=== PATIENT | male | born 1945 | race Caucasian/White ===

== ENCOUNTER 2021-11-12 13:44 | Inpatient (IN) | payer OTHER ==
[~2021-11-12] VITALS: Ht 177.8 cm; Wt 52.3 kg
[~2021-11-12 13:44] MED LIST: ADVAIR 250-501 EACH INH; ALBUTEROL0.63 MG/3 INH; ALPRAZOLAM0.5 MG PO; LEVAQUIN500 MG PO; MEDROL4 MG PO; MYCOSTATIN100000 UTS PO; NORVASC5 MG PO; OMNICEF 300 MG300 MG PO; PREDNISONE20 MG PO; PRINIVIL20 MG PO; PROAIR HFA8.5 GM INH; SPIRIVA RESPIMAT4 GM INH; TYLENOL 325MG325 MG PO; ZYRTEC10 M3 PO
[2021-11-12 14:24] LABS: HEMOGLOBIN 13.7 gm/dl (14.0-17.5); RED BLOOD COUNT 4.57 M/UL (4.20-5.50); WHITE BLOOD COUNT 25.3 K/UL (4.5-11.0)
[2021-11-12 14:40] LABS: BUN/CREATININE RATIO 29 (0-10)
[2021-11-12] MEDS ORDERED: ATORVASTATIN CA20 MG PO (17:19)
[2021-11-13 03:54] LABS: HEMOGLOBIN 11.4 gm/dl (14.0-17.5); RED BLOOD COUNT 3.81 M/UL (4.20-5.50)
[2021-11-13 04:27] LABS: BUN/CREATININE RATIO 23 (0-10)
[2021-11-14 04:11] LABS: HEMOGLOBIN 11.7 gm/dl (14.0-17.5); RED BLOOD COUNT 3.92 M/UL (4.20-5.50); WHITE BLOOD COUNT 11.9 K/UL (4.5-11.0)
[2021-11-14 05:02] LABS: BUN/CREATININE RATIO 29 (0-10)
--- NOTE | 2021-11-14 15:54 | NUR ---
PRESENT ELEVATED CARDIAC LEVELS SHOWN TO DR ACOSTA. ELEVATED TROPONIN ON ADMISSION CALLED TO DR TIAN, HE STATED CARDIOLOGY WAS AWARE.
[2021-11-15 03:23] LABS: HEMOGLOBIN 11.1 gm/dl (14.0-17.5); RED BLOOD COUNT 3.78 M/UL (4.20-5.50)
[2021-11-15 03:41] LABS: WHITE BLOOD COUNT 7.9 K/UL (4.5-11.0)
[2021-11-15 04:17] LABS: BUN/CREATININE RATIO 37 (0-10)
[2021-11-16] MEDS ORDERED: HUMIBID LA TAB600 MG PO (12:04)
[2021-11-16] MEDS ORDERED: ASPIRIN EC81 MG PO (12:15)
[2021-11-16] MEDS ORDERED: CARDIZEM CD240 MG PO (12:15)
== END 2021-11-16 12:05 | disposition home or self-care (01) | DRG 189 ==
LOC: ER1 13:44 → CDU 16:10 → PROG CARE 16:10
PROVIDERS: Emergency Medicine; Internal Medicine; Physician Assistant; ADMIT Internal Medicine
PROC: 5A09457 Assistance with Respiratory Ventilation, 24-96 Consecutive Hours, Continuous Positive Airway Pressure (ICD-10-PCS; 2021-11-12)
PROC: B24BZZZ Ultrasonography of Heart with Aorta (ICD-10-PCS; principal; 2021-11-15)
DX: J96.21 Acute and chronic respiratory failure with hypoxia (principal); I21.A1 Myocardial infarction type 2; Z68.1 Body mass index [BMI] 19.9 or less, adult; J96.22 Acute and chronic respiratory failure with hypercapnia; Z20.822 Contact with and (suspected) exposure to COVID-19; J43.8 Other emphysema; D72.828 Other elevated white blood cell count; R00.0 Tachycardia, unspecified; I07.1 Rheumatic tricuspid insufficiency; I10 Essential (primary) hypertension; R63.4 Abnormal weight loss; I27.20 Pulmonary hypertension, unspecified; Z99.81 Dependence on supplemental oxygen; Z79.01 Long term (current) use of anticoagulants; Z79.82 Long term (current) use of aspirin; Z98.42 Cataract extraction status, left eye; Z98.41 Cataract extraction status, right eye; Z87.891 Personal history of nicotine dependence; Z83.6 Family history of other diseases of the respiratory system
CPT/HCPCS: ECHO; 36415; 36600; 71045; 80048; 80053; 80202; 82550; 82553; 82803; 83036; 83540; 83550; 83605; 83735; 83874; 83880; 84100; 84484; 85025; 85027; 85652; 85730; 86140; 87040; 93005; 93306; 94640; 94660; 94664; 94760; 96374; 96375; 99285; J0456; J0696; J1644; J1650; J2185; J2270; J2405; J2920; J3370; J7030; J7070; Q9967; U0002

== ENCOUNTER 2021-12-28 16:39 | Inpatient (IN) | payer OTHER ==
[~2021-12-28] VITALS: Ht 177.8 cm; Wt 52.2 kg
[~2021-12-28 16:39] MED LIST changes: +ASPIRIN EC81 MG PO; +ATORVASTATIN CA20 MG PO; +CARDIZEM CD240 MG PO; +HUMIBID LA TAB600 MG PO
[2021-12-28 17:28] LABS: HEMOGLOBIN 12.3 gm/dl (14.0-17.5); RED BLOOD COUNT 4.2 M/UL (4.20-5.50); WHITE BLOOD COUNT 13.6 K/UL (4.5-11.0)
[2021-12-28] MEDS ORDERED: FUROSEMIDE20 MG PO (22:45)
[2021-12-29 05:53] LABS: HEMOGLOBIN 9.8 gm/dl (14.0-17.5); RED BLOOD COUNT 3.32 M/UL (4.20-5.50); WHITE BLOOD COUNT 5.1 K/UL (4.5-11.0)
[2021-12-29 06:01] LABS: BUN/CREATININE RATIO 24 (0-10)
[2021-12-29] MEDS ORDERED: AMLODIPINE BESYL5 MG PO (11:27)
[2021-12-29] MEDS ORDERED: ALBUTEROL2.5 MG/3 M INH (11:27)
[2021-12-30 05:43] LABS: HEMOGLOBIN 11.8 gm/dl (14.0-17.5); RED BLOOD COUNT 3.92 M/UL (4.20-5.50); WHITE BLOOD COUNT 11.7 K/UL (4.5-11.0)
[2021-12-31 05:31] LABS: RED BLOOD COUNT 3.69 M/UL (4.20-5.50); WHITE BLOOD COUNT 10.9 K/UL (4.5-11.0)
[2022-01-02 04:57] LABS: HEMOGLOBIN 12.5 gm/dl (14.0-17.5)
[2022-01-02 05:03] LABS: RED BLOOD COUNT 4.13 M/UL (4.20-5.50); WHITE BLOOD COUNT 14.6 K/UL (4.5-11.0)
[2022-01-02 05:20] LABS: BUN/CREATININE RATIO 52 (0-10)
--- NOTE | 2022-01-02 09:23 | NUR ---
PATIENT HAVING SHORTNESS OF BREATH, TACHYPNEW AND TACHYCARDIA. DR. DRUMMOND NOTIFIED AND ORDERED 2MG OF MORPHINE.
== END 2022-01-03 04:30 | disposition expired | DRG 870 ==
LOC: ER1 16:39 → CCU 20:10 → CDU 20:10 → CCU 22:22 → MED SURG 4 01-02 19:34
PROVIDERS: Emergency Medicine; Internal Medicine; Internal Medicine Pulmonary Disease; ADMIT Internal Medicine
PROC: 8E0ZXY6 Isolation (ICD-10-PCS; principal; 2021-12-28)
PROC: 5A1955Z Respiratory Ventilation, Greater than 96 Consecutive Hours (ICD-10-PCS; 2021-12-28)
PROC: XW033E5 Introduction of Remdesivir Anti-infective into Peripheral Vein, Percutaneous Approach, New Technology Group 5 (ICD-10-PCS; 2021-12-28)
PROC: 3E043XZ Introduction of Vasopressor into Central Vein, Percutaneous Approach (ICD-10-PCS; 2021-12-28)
PROC: 0BH17EZ Insertion of Endotracheal Airway into Trachea, Via Natural or Artificial Opening (ICD-10-PCS; 2021-12-28)
PROC: 02HV33Z Insertion of Infusion Device into Superior Vena Cava, Percutaneous Approach (ICD-10-PCS; 2021-12-28)
PROC: B548ZZA Ultrasonography of Superior Vena Cava, Guidance (ICD-10-PCS; 2021-12-28)
PROC: 0DH67UZ Insertion of Feeding Device into Stomach, Via Natural or Artificial Opening (ICD-10-PCS; 2021-12-29)
PROC: 3E0G76Z Introduction of Nutritional Substance into Upper GI, Via Natural or Artificial Opening (ICD-10-PCS; 2021-12-29)
DX: A41.89 Other specified sepsis (principal); U07.1 COVID-19; J12.82 Pneumonia due to coronavirus disease 2019; Z66 Do not resuscitate; Z51.5 Encounter for palliative care; R65.21 Severe sepsis with septic shock; J96.21 Acute and chronic respiratory failure with hypoxia; J15.9 Unspecified bacterial pneumonia; J96.22 Acute and chronic respiratory failure with hypercapnia; G93.41 Metabolic encephalopathy; J44.0 Chronic obstructive pulmonary disease with (acute) lower respiratory infection; N17.9 Acute kidney failure, unspecified; R64 Cachexia; E44.0 Moderate protein-calorie malnutrition; Z68.1 Body mass index [BMI] 19.9 or less, adult; F41.1 Generalized anxiety disorder; L89.152 Pressure ulcer of sacral region, stage 2; I10 Essential (primary) hypertension; I27.20 Pulmonary hypertension, unspecified; T38.0X5A Adverse effect of glucocorticoids and synthetic analogues, initial encounter; E16.2 Hypoglycemia, unspecified; L13.8 Other specified bullous disorders; F32.A Depression, unspecified; Z99.81 Dependence on supplemental oxygen; I25.2 Old myocardial infarction; Z98.42 Cataract extraction status, left eye; Z98.41 Cataract extraction status, right eye; Z98.890 Other specified postprocedural states; Z87.891 Personal history of nicotine dependence; Z79.01 Long term (current) use of anticoagulants; Z79.82 Long term (current) use of aspirin; Z83.6 Family history of other diseases of the respiratory system
CPT/HCPCS: 31500; 36415; 36556; 36600; 70450; 71045; 80048; 80053; 80202; 81001; 82550; 82553; 82803; 82962; 83605; 83735; 83880; 84484; 85025; 85610; 85730; 86140; 87040; 87081; 93005; 94002; 94003; 94640; 94760; 96374; 96375; 99285; J0248; J0692; J1100; J1650; J2060; J2250; J2270; J2370; J2543; J2704; J3370; J7030; J7042; J7070; Q9967; U0002